=== PATIENT | male | born 1940 | race Caucasian/White ===

== ENCOUNTER 2017-07-28 11:38 | Inpatient (IN) | payer MEDICARE ==
[~2017-07-28] VITALS: Ht 175.3 cm; Wt 60.7 kg
--- NOTE | ~2017-07-28 | PN ---
PATIENT:MAYTE MORGAN MEDICAL RECORD: [id number] LOCATION:KENDRA Galeana ADMISSION DATE: 07/28/17 PROGRESS NOTE DATE OF SERVICE: 08/05/2017 SUBJECTIVE: The patient's case was discussed with staff. He has no new complaint. OBJECTIVE: The patient is in good behavioral control with limited insight about his condition. He tolerates his medicines well. ASSESSMENT: No change in diagnoses. PLAN: Current medicines and therapies have been reviewed, both will be maintained. Long-term prognosis is guarded. TRANSINT:[id number] Voice Confirmation ID: [id number] DOCUMENT ID: [id number] JUAN BEYER MD at 1331 CC: [id number] DICTATION DATE: 08/05/17 1349 LINING MACHINE TENDER: 08/05/17 1519 ADM IN [place] [address] [place] [address]
--- NOTE | ~2017-07-28 | DS ---
PATIENT:MAYTE MORGAN :44 MEDICAL RECORD: [id number] DISCHARGE SUMMARY ADMISSION DATE: 07/28/17 DISCHARGE DATE: 08/10/17 IDENTIFYING DATA: The patient is 77 years old and he was admitted to the hospital on a voluntary basis because of agitation. The patient lives in the [facility] and has not been taking his medicines. He has been yelling, delusional, and difficult to redirect. He has been making bizarre statements and threatening staff and other patients. PAST MEDICAL HISTORY: Significant for hearing loss, hypertension, stroke, carotid stenosis, COPD, and knee replacement. PAST PSYCHIATRIC HISTORY: Significant for an established diagnosis of dementia along with a previous history of depression. HOSPITAL COURSE: The patient was admitted to the hospital and fully evaluated from both a medical, psychological, and social standpoint. He was treated with both memory enhancing and mood stabilizing medications and showed improvement through the course of his hospitalization. He was subsequently transitioned out of the hospital and back to the snf, but when the snf transport people came to pick him up, he suddenly changed his mind and said he would not go with them. His family did take him home. DISCHARGE DIAGNOSES: AXIS I: Vascular dementia, major depression, moderate severity without psychotic features. AXIS II: None. AXIS III: Hearing loss, hyperlipidemia, glaucoma, carotid stenosis, and hypertension. AXIS IV: Moderate stressors. AXIS V: Global assessment of functioning is 35. PLAN: At the time of discharge, the patient was in good behavioral control and had no active thoughts of harming himself or others. He was tolerating his medications well. His long-term prognosis is guarded. TRANSINT:[id number] Voice Confirmation ID: [id number] DOCUMENT ID: [id number] JUAN BEYER MD at 1348 CC: [id number] DICTATION DATE: 08/12/17 1452 DOORPERSON OR LUGGAGE PORTER: 08/12/17 1512 DIS IN 08/10/17 [id number] [place] [address]
--- NOTE | ~2017-07-28 | PN ---
PATIENT:MAYTE MORGAN MEDICAL RECORD: [id number] LOCATION:KENDRA Galeana ADMISSION DATE: 07/28/17 PROGRESS NOTE DATE OF SERVICE: 07/30/2017 SUBJECTIVE: The patient states he will not take medication. OBJECTIVE: The patient is very difficult to communicate due to his hearing impairment. Staff report that he has been refusing personal hygiene care as well as medication. He does have an active urinary tract infection. On exam, mood is irritable. Affect is brittle. Speech is terse due to hearing impairment. Content of thought exhibits paranoid ideation. Sensorium shows no change. ASSESSMENT: No change in diagnoses. PLAN: 1. Maintain current treatment plan. 2. Continue supportive therapy. TRANSINT:[id number] Voice Confirmation ID: [id number] DOCUMENT ID: [id number] SAMARA MORAN III, MD at 1733 CC: [id number] DICTATION DATE: 07/30/17 1430 SPECIAL ASSEMBLIES SUPERVISOR: 07/30/17 1514 ADM IN [place] [address] [place] [address]
--- NOTE | ~2017-07-28 | PN ---
PATIENT:MAYTE MORGAN MEDICAL RECORD: [id number] LOCATION:KENDRA Galeana ADMISSION DATE: 07/28/17 PROGRESS NOTE DATE OF SERVICE: 08/03/2017 SUBJECTIVE: The patient's case was discussed with staff. He has no new complaint. OBJECTIVE: The patient is refusing medications. He is very hard of hearing, but I believe he understood the question. It is just that the answer made no sense. He is talking about some kind of a problem he had with medicines when he lived in [place], but I cannot get him to understand or cannot get him to express to me what that has to do with what we are doing now. He will only intermittently take medications, making it fairly difficult to treat him. ASSESSMENT: No change in diagnoses. PLAN: Current efforts will be maintained. His long-term prognosis is guarded. TRANSINT:[id number] Voice Confirmation ID: [id number] DOCUMENT ID: [id number] JUAN BEYER MD at 1426 CC: [id number] DICTATION DATE: 08/03/17 1430 SYSTEM ADMINISTRATION MANAGER: 08/03/17 1456 ADM IN [place] [address] [place] [address]
--- NOTE | ~2017-07-28 | PN ---
PATIENT:MAYTE MORGAN MEDICAL RECORD: [id number] LOCATION:KENDRA SaldañaBarbaraCarmen ADMISSION DATE: 07/28/17 PROGRESS NOTE DATE OF SERVICE: 08/07/2017 SUBJECTIVE: The patient's case was discussed with staff. He has no new complaint. OBJECTIVE: The patient is in good behavioral control with no aggressive behavior. ASSESSMENT: No change in diagnoses. PLAN: Supportive and educational interventions were made. Long-Term prognosis is guarded. TRANSINT:[id number] Voice Confirmation ID: [id number] DOCUMENT ID: [id number] JUAN BEYER MD at 1355 CC: [id number] DICTATION DATE: 08/07/17 0835 RECONCILEMENT CLERK: 08/07/17 1201 ADM IN [place] [address] [place] [address]
--- NOTE | ~2017-07-28 | PN ---
PATIENT:MAYTE MORGAN MEDICAL RECORD: [id number] LOCATION:KENDRA Galeana ADMISSION DATE: 07/28/17 PROGRESS NOTE DATE OF SERVICE: 08/09/2017 SUBJECTIVE: The patient's case was discussed with staff. He has no new complaint. OBJECTIVE: The patient is in good behavioral control with limited insight about his condition. He tolerates his medicines well. ASSESSMENT: No change in diagnoses. PLAN: Brief supportive and educational interventions were made. The patient is not acutely dangerous. I anticipate he could be transitioned out of the hospital soon. TRANSINT:[id number] Voice Confirmation ID: [id number] DOCUMENT ID: [id number] JUAN BEYER MD at 1446 CC: [id number] DICTATION DATE: 08/09/17 1410 AIR BRAKE WORKER: 08/09/17 1445 ADM IN [facility] [address] [place] [address]
--- NOTE | ~2017-07-28 | PN ---
PATIENT:MAYTE MORGAN MEDICAL RECORD: [id number] LOCATION:KENDRA Galeana ADMISSION DATE: 07/28/17 PROGRESS NOTE DATE OF SERVICE: 08/10/2017 SUBJECTIVE: The patient's case was discussed with staff. He has no new complaint. OBJECTIVE: The patient is in good behavioral control with limited insight about his condition. He generally tolerates his medicines well. ASSESSMENT: No change in diagnoses. PLAN: The patient will be transitioned out of the hospital today. His long-term prognosis is guarded. Followup will be with the alf physician. TRANSINT:[id number] Voice Confirmation ID: [id number] DOCUMENT ID: [id number] JUAN BEYER MD at 1731 CC: [id number] DICTATION DATE: 08/10/17 1504 CASING MATERIAL WEIGHER: 08/10/17 1524 DIS IN 08/10/17 [id number] [place] [address]
--- NOTE | ~2017-07-28 | PSY ---
PATIENT NAME:MAYTE MORGAN MEDICAL RECORD: [id number] : 44 LOCATION:KENDRA Wilson ADMISSION DATE: 07/28/17 ACCOUNT: [id number] PSYCHIATRIC EVALUATION DATE OF EVALUATION: 07/29/17 IDENTIFYING DATA: The patient is 77 years old. He was admitted to the hospital on a voluntary basis because of agitation. CHIEF COMPLAINT: None. HISTORY OF PRESENT ILLNESS: The patient lives in the [facility]. He has not been taking medicines there. He has been yelling, delusional, and difficult for them to redirect. He has been making delusional statements. He is extremely hard of hearing and even with his hearing aids and shouting into to ears, he is not following what is being said very well. He will answer. He has no questions and he is trying to understand what I am saying, but he has trouble. Even printing in large print, he still was having trouble. I think it is a cognitive processing issue as much as hearing loss. PAST MEDICAL HISTORY: Significant for stroke. He also has hypertension, carotid stenosis, COPD, and knee replacement. PAST PSYCHIATRIC HISTORY: None, but he clearly has a dementia. ALLERGIES: PNEUMOCOCCAL VACCINE. CURRENT MEDICATIONS: Include aspirin, Levaquin, Lipitor, lisinopril, Plavix, Protonix, and Zoloft. FAMILY HISTORY: Unknown. SOCIAL HISTORY: The patient lives in a correction. He has no current use of drugs or alcohol. His remote use is unknown. He apparently was living in [place] prior to going to the correction. He is and has 2 children. MENTAL STATUS EXAMINATION: The patient is awake, alert, and oriented to person only. His mood is flat. His affect is constricted. Thought processes are circumstantial. Memory, concentration, and abstraction abilities are severely impaired and he denies any active intent to harm himself or others as well as overt psychotic symptoms. ASSETS: Stable living environment. LIABILITIES: Limited insight. DIAGNOSTIC IMPRESSION: AXIS I: Vascular dementia and major depression. AXIS II: None. AXIS III: Hyperlipidemia, glaucoma, carotid stenosis, and hypertension. AXIS IV: Moderate stressors. AXIS V: Global assessment of functioning is 30. PLAN: At this time, the patient is admitted to the hospital for a comprehensive medical, psychological, and social evaluation. He will be treated with both mood stabilizing and memory enhancing medications. His long-term prognosis is guarded. TRANSINT:[id number] Voice Confirmation ID: [id number] DOCUMENT ID: [id number] JUAN BEYER MD at 1344 CC: [id number] DICTATION DATE: 07/29/17 1233 HEAD IRRIGATOR: 07/29/17 1244 ADM IN [place] [id number] [place] [address]
--- NOTE | ~2017-07-28 | PN ---
PATIENT:MAYTE MORGAN MEDICAL RECORD: [id number] LOCATION:KENDRA Galeana ADMISSION DATE: 07/28/17 PROGRESS NOTE DATE OF SERVICE: 08/02/2017 SUBJECTIVE: The patient's case was discussed with staff. He has no new complaint. OBJECTIVE: The patient is in good behavioral control with limited insight about his condition. He tolerates his medicines well. Eye contact is fair. ASSESSMENT: No change in diagnoses. PLAN: Brief supportive and educational interventions were made. The patient will be maintained on current medicines, which I have reviewed. I anticipate he can be transitioned out of the hospital if this level of improvement continues. TRANSINT:[id number] Voice Confirmation ID: [id number] DOCUMENT ID: [id number] JUAN BEYER MD at 1418 CC: [id number] DICTATION DATE: 08/02/171837 ASSISTANT CREDIT MANAGER: 08/03/17 0126 ADM IN [facility] [address] [place] [address]
--- NOTE | ~2017-07-28 | PN ---
PATIENT:MAYTE MORGAN MEDICAL RECORD: [id number] LOCATION:KENDRA Galeana ADMISSION DATE: 07/28/17 PROGRESS NOTE DATE OF SERVICE: 08/04/2017 SUBJECTIVE: The patient's case was discussed with staff. He has no new complaint. OBJECTIVE: The patient is in good behavioral control with limited insight about his condition. He tolerates his medicines well. ASSESSMENT: No change in diagnoses. PLAN: Brief supportive and educational interventions were made. Long-term prognosis is guarded. TRANSINT:[id number] Voice Confirmation ID: [id number] DOCUMENT ID: [id number] JUAN BEYER MD at 1337 CC: [id number] DICTATION DATE: 08/04/17 1458 HEALTHCARE FACILITY ADMINISTRATOR: 08/04/17 1607 ADM IN [place] [address] [place] [id number]
--- NOTE | ~2017-07-28 | PN ---
PATIENT:MAYTE MORGAN MEDICAL RECORD: [id number] LOCATION:KENDRA Galeana ADMISSION DATE: 07/28/17 PROGRESS NOTE DATE OF SERVICE: 08/06/2017 SUBJECTIVE: The patient's case was discussed with staff. He has no new complaint. OBJECTIVE: The patient is in good behavioral control with limited insight about his condition. He tolerates his medicines well. ASSESSMENT: No change in diagnoses. PLAN: Supportive and educational interventions were made. Long-term prognosis is guarded. I anticipate the patient can be transitioned out of the hospital soon if this level of improvement is maintained. TRANSINT:[id number] Voice Confirmation ID: [id number] DOCUMENT ID: [id number] JUAN BEYER MD at 1355 CC: [id number] DICTATION DATE: 08/06/17 1341 EDGE SAWYER: 08/06/17 2049 ADM IN [facility] [address] [place] [address]
--- NOTE | ~2017-07-28 | PN ---
PATIENT:MAYTE MORGAN MEDICAL RECORD: [id number] LOCATION:KENDRA Galeana ADMISSION DATE: 07/28/17 PROGRESS NOTE DATE OF SERVICE: 07/31/2017 SUBJECTIVE: No new complaint. OBJECTIVE: Again, communication is difficult because of the patient's hearing impairment. He has continued to be uncooperative in terms of personal hygiene and medication; however, his behavior has been reasonably well controlled. On exam, mood appears euthymic. Affect is very constricted. Speech terse. Content of thought appears to be focused primarily on somatic concerns. Sensorium shows no change. ASSESSMENT: No change in diagnosis. PLAN: 1. Continue current medications. 2. Continue supportive therapy. TRANSINT:[id number] Voice Confirmation ID: [id number] DOCUMENT ID: [id number] SAMARA MORAN III, MD at 1124 CC: [id number] DICTATION DATE: 07/31/17 1149 POCKET OPERATOR: 07/31/17 1202 ADM IN [place] [id number] [place] [id number]
[2017-07-28 12:34] LABS: APPEARANCE CLEAR (CLEAR); BILIRUBIN NEGATIVE (NEGATIVE); COLOR YELLOW (YELLOW); GLUCOSE NEGATIVE (NEGATIVE); KETONE NEGATIVE (NEGATIVE); NITRITE NEGATIVE (NEGATIVE); PROTEIN NEGATIVE (NEGATIVE); UROBILINOGEN NORMAL (NORMAL)
[2017-07-28] MEDS ORDERED: ACIDOPHILUS LAC1 CAP PO (12:36)
[2017-07-28] MEDS ORDERED: BAYER CHEWABLE81 MG PO (12:37)
[2017-07-28] MEDS ORDERED: COSOPT EYE DROPS5 ML EACH EYE (12:39)
[2017-07-28] MEDS ORDERED: LEVAQUIN500 MG PO (12:43)
[2017-07-28] MEDS ORDERED: VITAMIN D250000 UNIT PO (12:43)
[2017-07-28] MEDS ORDERED: LIPITOR40 MG PO (12:44)
[2017-07-28] MEDS ORDERED: PROTONIX20 MG PO (12:45)
[2017-07-28] MEDS ORDERED: LISINOPRIL10 MG PO (12:45)
[2017-07-28] MEDS ORDERED: PLAVIX75 MG PO (12:45)
[2017-07-28] MEDS ORDERED: ZOLOFT25 MG PO (12:46)
[2017-07-28 13:02] VITALS: BP 184/66
[2017-07-28 13:03] VITALS: BMI 23.0
[2017-07-28 13:19] LABS: BASOPHILS 0.2 % (0-2); EOSINOPHILS 0.9 % (0-7); HEMATOCRIT 41.8 % (42.0-54.0); HEMOGLOBIN 13.6 g/dL (13.5-17.5); IMMATURE GRANULOCYTES 0.3 % (0-5); LYMPHOCYTES 13.7 % (15-50); MCH 28.3 pg (26.0-34.0); MCHC 32.5 g/dL (31.0-37.0); MCV 86.9 fL (80.0-100.0); MEAN PLATELET VOLUME 11.4 fL (7.4-10.4); MONOCYTES 6.4 % (2-11); NEUTROPHILS 78.5 % (40-80); PLATELET COUNT 218 10x3/uL (130-400); RBC 4.81 10x6/uL (4.20-6.10); RDW 14.7 % (11.5-14.5); WBC 11.4 10x3/uL (4.8-10.8)
[2017-07-28 13:25] LABS: ALKALINE PHOSPHATASE 115 U/L (46-116); ALT (SGPT) 17 U/L (10-68); BILIRUBIN - TOTAL 0.29 mg/dL (0.2-1.3); CALC OSMOLALITY 286 mosm/kg (275-300); CALCIUM 9.3 mg/dL (8.5-10.1); CARBON DIOXIDE 28.4 mmol/L (21.0-32.0); CHLORIDE - SERUM 105 mmol/L (98-107); CHOL - HDL RATIO 3.5 ratio (2.3-4.9); CHOLESTEROL, TOTAL 131 mg/dL (0-200); GLUCOSE 134 mg/dL (74-106); HDL CHOLESTEROL 38 mg/dL (32-96); LDL CHOLESTEROL 54 mg/dL (0-100); LDL-HDL RATIO 1.4 ratio (1.5-3.5); PROTEIN - SERUM 7.6 g/dL (6.4-8.2); SODIUM 142 mmol/L (136-145); THYROID STIMULATING HORMONE 1.12 uIU/mL (0.36-3.74); TRIGLYCERIDE 196 mg/dL (30-200); UREA NITROGEN 17 mg/dL (7-18); eGFR NON AFRICAN AMERICAN 77 mL/min (90-120)
[2017-07-28 15:34] VITALS: BP 184/66; BMI 23.0
[2017-07-28 19:54] VITALS: BP 130/60
[2017-07-29 05:15] LABS: RAPID PLASMA REAGIN Non Reactive (Non Reactive)
[2017-07-29 07:27] LABS: VITAMIN D 25 HYDROXY 17.3 ng/mL (30.0-100.0)
[2017-07-29 14:26] VITALS: Ht 175.3 cm; Wt 60.7 kg
[2017-07-29 19:56] VITALS: BP 171/66
[2017-07-30 09:28] VITALS: BP 122/54
[2017-07-30 20:10] VITALS: BP 152/57
[2017-07-31 19:57] VITALS: BP 110/61
[2017-08-01 07:52] VITALS: BP 176/56
[2017-08-01 19:53] VITALS: BP 153/081
[2017-08-02 07:00] VITALS: BP 139/62
[2017-08-03 07:00] VITALS: BP 139/57
[2017-08-03 20:08] VITALS: BP 145/56
[2017-08-04 10:47] VITALS: BP 138/63
[2017-08-05 09:31] VITALS: BP 136/46
[2017-08-05 19:44] VITALS: BP 131/56
[2017-08-06 09:32] VITALS: BP 122/47
[2017-08-06 20:22] VITALS: BP 146/50
[2017-08-07 09:57] VITALS: BP 197/58
[2017-08-07 20:01] VITALS: BP 132/66
[2017-08-08 07:00] VITALS: BP 140/61
[2017-08-08 19:30] VITALS: BP 146/66
[2017-08-09 07:00] VITALS: BP 120/48
[2017-08-09] MEDS ORDERED: ZOLOFT50 MG PO (14:03)
[2017-08-09] MEDS ORDERED: NAMENDA5 MG PO (14:03)
[2017-08-09 19:49] VITALS: BP 141/51; BP 152/55
[2017-08-10 09:52] VITALS: BP 111/45
[2017-08-10 11:05] VITALS: BP 111/45
[2017-08-10 19:42] VITALS: BP 163/50
== END 2017-08-10 18:15 | disposition home or self-care (01) | DRG 57 ==
LOC: D.PSYCH 11:38
PROVIDERS: Psychiatry & Neurology Psychiatry
DX: I69.918 Other symptoms and signs involving cognitive functions following unspecified cerebrovascular disease (principal); F01.51 Vascular dementia, unspecified severity, with behavioral disturbance; E53.8 Deficiency of other specified B group vitamins; E55.9 Vitamin D deficiency, unspecified; F32.9 Major depressive disorder, single episode, unspecified; F41.9 Anxiety disorder, unspecified; K21.9 Gastro-esophageal reflux disease without esophagitis; H40.9 Unspecified glaucoma; E78.5 Hyperlipidemia, unspecified; I65.29 Occlusion and stenosis of unspecified carotid artery; I10 Essential (primary) hypertension; Z72.0 Tobacco use

== ENCOUNTER 2017-08-25 12:02 | Inpatient (IN) | payer MEDICARE ==
[~2017-08-25] VITALS: Ht 172.7 cm; Wt 87.2 kg
--- NOTE | ~2017-08-25 | PN ---
PATIENT:MAYTE MORGAN MEDICAL RECORD: [id number] LOCATION:KENDRA Galeana ADMISSION DATE: 08/25/17 PROGRESS NOTE DATE OF SERVICE: 09/10/2017 SUBJECTIVE: No new complaint. OBJECTIVE: The patient continues to be episodically uncooperative about medications and personal care. However, overall he is doing much better. He has not shown any evidence of aggressiveness. On exam, mood is for the most part euthymic. Affect is constricted. Speech is terse. Content of thought unchanged. Sensorium unchanged. ASSESSMENT: No change in diagnoses. PLAN: 1. Continue current medications. 2. Anticipate discharge early next week. TRANSINT:[id number] Voice Confirmation ID: [id number] DOCUMENT ID: [id number] SAMARA MORAN III, MD at 0703 CC: [id number] DICTATION DATE: 09/10/17 0959 FLAP CURER: 09/10/17 1107 ADM IN [place] [place] [address]
--- NOTE | ~2017-08-25 | DS ---
PATIENT:MAYTE MORGAN :44 MEDICAL RECORD: [id number] DISCHARGE SUMMARY ADMISSION DATE: 08/25/17 DISCHARGE DATE: 09/13/17 IDENTIFYING DATA: The patient is 77 years old and known to me from recent hospitalizations. He was admitted on this occasion because of aggression. He was hospitalized in July of this year for similar reasons. He was placed at the [facility] and on the occasion of this admission, he became acutely confused, agitated, and combative. He has a complicated history related to the relationship with his daughter in the assisted and he also tends to become angry and when he is not allowed to live with his daughter because she does not want him there he will not take his medicines. I know there has been a history of him not taking his medicines just prior to this admission, but it is difficult to know how many of them he flatly refused and how many he put in his mouth, but then later spit out, which he has been known to do. HOSPITAL COURSE: The patient was admitted to the hospital and fully evaluated from both the medical, psychological, and social standpoint. Extra care was taken by the nursing staff to ensure that if he does take the medicine that he actually swallowed it and interestingly, he rapidly improved. He was subsequently transitioned back to the assisted and was compliant with his medications at that time. DISCHARGE DIAGNOSES: AXIS I: Vascular dementia. AXIS II: None. AXIS III: Carotid stenosis, hypertension, hyperlipidemia, glaucoma. AXIS IV: Moderate stressors. AXIS V: Global Assessment Of Functioning is 35. PLAN: At the time of discharge, the patient was in good behavioral control and had no active thoughts of harming himself or others. He was tolerating his medications well. His long-term prognosis is guarded. TRANSINT:[id number] Voice Confirmation ID: [id number] DOCUMENT ID: [id number] JUAN BEYER MD at 1130 CC: [id number] DICTATION DATE: 09/17/171422 SUPERVISOR SEWING ROOM: 09/17/172211 DIS IN 09/13/17 [place] [address] [place] [address]
--- NOTE | ~2017-08-25 | PN ---
PATIENT:MAYTE MORGAN MEDICAL RECORD: [id number] LOCATION:KENDRA Galeana ADMISSION DATE: 08/25/17 PROGRESS NOTE DATE OF SERVICE: 08/31/2017 SUBJECTIVE: The patient's case was discussed with staff. He has no new complaint. OBJECTIVE: The patient is only partially oriented. He is not taking medications as prescribed. He became angry and raised his fist at one of the nurses today. ASSESSMENT: No change in diagnoses. PLAN: I have spoken with the patient about taking his medicines. He agrees to do so. I do not think he is lying to me, but I doubt that he will remember this or continue to take medicines. He was a little argumentative about needing them at all, but there is not very much I can do for him if he is not going to take medicines. He wants to live with his daughter Gilma, but Gilma does not want him to live with her. When he is told this, he gets angry and says it is not true even though she has told them this, he just cannot remember. TRANSINT:[id number] Voice Confirmation ID: [id number] DOCUMENT ID: [id number] JUAN BEYER MD at 1218 CC: [id number] DICTATION DATE: 08/31/17 1444 STRAW HAT WASHER OPERATOR: 08/31/17 1457 ADM IN [address] [address] [place] [address]
--- NOTE | ~2017-08-25 | PN ---
PATIENT:MAYTE MORGAN MEDICAL RECORD: [id number] LOCATION:KENDRA Cerda112 ADMISSION DATE: 08/25/17 PROGRESS NOTE DATE OF SERVICE: 09/03/2017 SUBJECTIVE: No new verbal complaint. OBJECTIVE: The patient is taking his medications as prescribed. Plans are eventual discharge to [facility] in [place]. On exam, mood is slightly irritable. Affect is reserved. Speech is terse. Content of thought is negative for overt psychosis. Sensorium is unchanged. ASSESSMENT: No change in diagnosis. PLAN: 1. Continue current medication. 2. Continue supportive therapy. TRANSINT:[id number] Voice Confirmation ID: [id number] DOCUMENT ID: [id number] SAMARA MORAN III, MD at 1037 CC: [id number] DICTATION DATE: 09/03/17 1107 COLD HEADER: 09/03/17 1253 ADM IN [place] [address] [place] [id number]
--- NOTE | ~2017-08-25 | PN ---
PATIENT:MAYTE MORGAN MEDICAL RECORD: [id number] LOCATION:KENDRA Galeana ADMISSION DATE: 08/25/17 PROGRESS NOTE DATE OF SERVICE: 09/08/2017 SUBJECTIVE: The patient's case was discussed with staff. He has no new complaint. OBJECTIVE: The patient is in good behavioral control with limited insight about his condition. He tolerates his medicines well. ASSESSMENT: No change in diagnoses. PLAN: Brief supportive and educational interventions were made. Long-term prognosis is guarded. TRANSINT:[id number] Voice Confirmation ID: [id number] DOCUMENT ID: [id number] JUAN BEYER MD at 1403 CC: [id number] DICTATION DATE: 09/08/17 1452 STORE MERCHANDISER: 09/08/17 1627 ADM IN [place] [place] [address]
--- NOTE | ~2017-08-25 | PN ---
PATIENT:MAYTE MORGAN MEDICAL RECORD: [id number] LOCATION:KENDRA Galeana ADMISSION DATE: 08/25/17 PROGRESS NOTE DATE OF SERVICE: 09/13/2017 SUBJECTIVE: The patient's case was discussed with staff. He has no new complaint. OBJECTIVE: The patient is in good behavioral control with limited insight about his condition. He generally tolerates his medicines well. ASSESSMENT: No change in diagnoses. PLAN: The patient will be transitioned to the [facility] in [place], [place]. Follow up will be with his primary care [facility] physician. He currently is tolerating his medicines well and does not represent an acute risk to himself or others. TRANSINT:[id number] Voice Confirmation ID: [id number] DOCUMENT ID: [id number] JUAN BEYER MD at 0826 CC: [id number] DICTATION DATE: 09/13/17 1410 CEMENT TESTER ASSISTANT: 09/13/17 1532 DIS IN 09/13/17 [place] [id number] [place] [address]
--- NOTE | ~2017-08-25 | PSY ---
PATIENT NAME:MAYTE MORGAN MEDICAL RECORD: [id number] : 44 LOCATION:KENDRA Gonzales ADMISSION DATE: 08/25/17 ACCOUNT: [id number] PSYCHIATRIC EVALUATION DATE OF EVALUATION: 08/26/17 IDENTIFYING DATA: The patient is 77 years old and he is very well known to me from recent hospitalization. CHIEF COMPLAINT: Aggression. HISTORY OF PRESENT ILLNESS: The patient was hospitalized here in July of this year. He has a history of dementia and was at the [facility] where he had been confused, agitated, and combative. He was treated with medications and on the day of discharge, the [facility] refused to take him back. He subsequently went home with his daughter. He says he is happy there and likes being there. He apparently has not been taking his medicines. The family has found medications that belonged to him hidden in various places around the house. It is unclear how much he is not taking them, but he has become increasingly agitated and confused and that precipitated this readmission. The patient is very hard of hearing, but if spoken to slowly and directly face on, I do not seem to have the trouble that others do and it may be related to the tone of voice. At any rate, he clearly is confused. He says he does not know why he is here and then when asked about the agitation, denies it. PAST PSYCHIATRIC HISTORY: Significant for hypertension, carotid stenosis, COPD, stroke, and knee replacement. CURRENT MEDICATIONS: Include Namenda, Zoloft, lisinopril, and aspirin. FAMILY HISTORY: Negative for psychiatric disease by his report. SOCIAL HISTORY: The patient is a cigarette smoker, but nondrinker. He has never been a user of drugs. He is and has 2 adult children. MENTAL STATUS EXAMINATION: The patient is awake, alert and oriented to person and place. His mood is euthymic. His affect is appropriate. Thought processes are disorganized and his memory, concentration, and abstraction abilities are at least moderately impaired. He denies any intent to harm himself or others as well as overt psychotic symptoms. ASSETS: Stable living environment. LIABILITIES: Limited insight. DIAGNOSTIC IMPRESSION: AXIS I: Vascular dementia. AXIS II: None. AXIS III: Carotid stenosis, hypertension, hyperlipidemia, and glaucoma. AXIS IV: Moderate stressors. AXIS V: Global assessment of functioning is 35. PLAN: At this time, the patient is admitted to the hospital for a comprehensive medical, psychological, and social evaluation. He will be treated with both mood stabilizing and memory enhancing medications. His long-term prognosis is guarded. TRANSINT:[id number] Voice Confirmation ID: [id number] DOCUMENT ID: [id number] JUAN BEYER MD at 1403 CC: [id number] DICTATION DATE: 08/26/17 1320 ORACLE SOA DEVELOPER: 08/26/17 1339 ADM IN [place] [id number] [place] [id number]
--- NOTE | ~2017-08-25 | PN ---
PATIENT:MAYTE MORGAN MEDICAL RECORD: [id number] LOCATION:KENDRA Galeana ADMISSION DATE: 08/25/17 PROGRESS NOTE DATE OF SERVICE: 08/27/2017 SUBJECTIVE: No new complaint. OBJECTIVE: The patient has been uncooperative. He has again been refusing medications similar to his behavior on previous visit. The patient had been aggressive and assaultive toward staff and other residents at his [facility]. On exam today, mood is somewhat irritable. Affect is shallow and brittle. Speech is very terse. Content of thought is negative for overt psychosis. Sensorium shows no change. ASSESSMENT: No change in diagnosis. PLAN: 1. Maintain current medications. 2. Continue supportive therapy. TRANSINT:[id number] Voice Confirmation ID: [id number] DOCUMENT ID: [id number] SAMARA MORAN III, MD at 1341 CC: [id number] DICTATION DATE: 08/27/17 1143 RAMP AGENT: 08/27/17 1148 ADM IN [place] [address] [place] [id number]
--- NOTE | ~2017-08-25 | PN ---
PATIENT:MAYTE MORGAN MEDICAL RECORD: [id number] LOCATION:[facility] ADMISSION DATE: 08/25/17 PROGRESS NOTE DATE OF SERVICE: 09/01/2017 SUBJECTIVE: The patient's case was discussed with staff. He has no new complaint. OBJECTIVE: The patient is refusing to take medications. He has not been aggressive. When asked about the medicines, he becomes argumentative and says he does not need them. He is very hard of hearing, but some people are understood better than others. 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 He continues to present a dilemma in that he will not take medicine consistently and he is insisting upon a placement that is not realistic. TRANSINT:[id number] Voice Confirmation ID: [id number] DOCUMENT ID: [id number] JUAN BEYER MD at 1341 CC: [id number] DICTATION DATE: 09/01/17 1230 FAMILY PSYCHOLOGIST: 09/01/17 1244 ADM IN [id number] [place] [address]
--- NOTE | ~2017-08-25 | PN ---
PATIENT:MAYTE MORGAN MEDICAL RECORD: [id number] LOCATION:[facility] ADMISSION DATE: 08/25/17 PROGRESS NOTE DATE OF SERVICE: 09/07/2017 SUBJECTIVE: The patient's case was discussed with staff. He has no new complaint. OBJECTIVE: The patient denies intent to harm himself or others. He generally tolerates his medicines well. ASSESSMENT: No change in diagnoses. PLAN: Current medicines and therapies have been reviewed and will be maintained. Long-term prognosis is guarded. TRANSINT:[id number] Voice Confirmation ID: [id number] DOCUMENT ID: [id number] JUAN BEYER MD at 1444 CC: [id number] DICTATION DATE: 09/07/17 1515 VAT CLEANER: 09/07/17 1527 ADM IN [facility] [address] [place] [address]
--- NOTE | ~2017-08-25 | PN ---
PATIENT:MAYTE MORGAN MEDICAL RECORD: [id number] LOCATION:[facility] ADMISSION DATE: 08/25/17 PROGRESS NOTE DATE OF SERVICE: 09/06/2017 SUBJECTIVE: The patient's case was discussed with staff. He has no new complaint. OBJECTIVE: The patient is in good behavioral control with limited insight about his condition. He does tolerate his medicines well. He will have his Namenda increased to 5 mg twice daily. Namenda is being used to treat his underlying cognitive impairment. He is scheduled to be admitted to the [facility]. He wants to live with his daughter, Gilma. Gilma does not want him to live there. TRANSINT:[id number] Voice Confirmation ID: [id number] DOCUMENT ID: [id number] JUAN BEYER MD at 1016 CC: [id number] DICTATION DATE: 09/06/17 190 AUTOMOBILE WASHER STEAM: 09/07/17 0321 ADM IN [place] [id number] [place] [address]
--- NOTE | ~2017-08-25 | PN ---
PATIENT:MAYTE MORGAN MEDICAL RECORD: [id number] LOCATION:[facility] ADMISSION DATE: 08/25/17 PROGRESS NOTE DATE OF SERVICE: 08/30/2017 SUBJECTIVE: The patient's case was discussed with staff. He has no new complaint. OBJECTIVE: The patient is in good behavioral control with limited insight about his condition. He tolerates his medicines well. He has not been entirely compliant with his medicines, but when asked about this, he insists he has. He wants to live with his daughter, Gilma. Gilma does not want him to live with her. When he is told this, he rejects that and says that is not true. TRANSINT:[id number] Voice Confirmation ID: [id number] DOCUMENT ID: [id number] JUAN BEYER MD at 1344 CC: [id number] DICTATION DATE: 08/30/17 1413 IRON PELLET TESTER: 08/30/17 1445 ADM IN [address] [id number] [place] [address]
--- NOTE | ~2017-08-25 | PN ---
PATIENT:MAYTE MORGAN MEDICAL RECORD: [id number] LOCATION:[facility] ADMISSION DATE: 08/25/17 PROGRESS NOTE DATE OF SERVICE: 09/09/2017 SUBJECTIVE: The patient's case was discussed with staff. He has no new complaint. OBJECTIVE: The patient is in good behavioral control with limited insight about his condition. He does tolerate his medicines well. He is accepting of going to the [facility] in [place]. He has very poor short-term memory and 2 days in a row he has asked questions about the same events when given news. I do anticipate he could be transitioned out of the hospital soon if this level of improvement is maintained. Current medicines will be maintained. TRANSINT:[id number] Voice Confirmation ID: [id number] DOCUMENT ID: [id number] JUAN BEYER MD at 0841 CC: [id number] DICTATION DATE: 09/09/17 1407 MEDICAL APPOINTMENT CLERK: 09/09/17 1417 ADM IN [place] [id number] [place] [address]
--- NOTE | ~2017-08-25 | PN ---
PATIENT:MAYTE MORGAN MEDICAL RECORD: [id number] LOCATION:[facility] ADMISSION DATE: 08/25/17 PROGRESS NOTE DATE OF SERVICE: 09/02/2017 SUBJECTIVE: The patient's case was discussed with staff. He has no new complaints. OBJECTIVE: The patient is in good behavioral control with limited insight about his condition. He generally tolerates his medicines well. He actually took his medicines this morning. Adult Protective Services is involved with the case and are going to assist us in placing him in a prison. TRANSINT:[id number] Voice Confirmation ID: [id number] DOCUMENT ID: [id number] JUAN BEYER MD at 0804 CC: [id number] DICTATION DATE: 09/02/17 1359 NEGOTIATIONS DIRECTOR: 09/02/17 1404 ADM IN [place] [id number] [place] [address]
--- NOTE | ~2017-08-25 | PN ---
PATIENT:MAYTE MORGAN MEDICAL RECORD: [id number] LOCATION:[facility] ADMISSION DATE: 08/25/17 PROGRESS NOTE DATE OF SERVICE: 09/04/2017 SUBJECTIVE: The patient's case was discussed with staff. He has no new complaint. OBJECTIVE: The patient denies intent to harm himself or others. He generally tolerates his medicines well. He is taking his medicines and has shown significant improvement. There does remain the road block that he insists that he wants to live with his daughter, Gilma and insists that we are mistaken when we tell her that she feels she cannot take care of him. Discussing that topic is a certain way of agitating him. ASSESSMENT: No change in diagnoses. PLAN: I am pleased the patient is taking his medicines, that is an improvement. The obstacle mentioned above is still something I am not sure about how to circumvent. TRANSINT:[id number] Voice Confirmation ID: [id number] DOCUMENT ID: [id number] JUAN BEYER MD at 1844 CC: [id number] DICTATION DATE: 09/04/17 1059 ASSISTANT OCEANOGRAPHER: 09/04/17 1615 ADM IN [facility] [address] [place] [address]
[~2017-08-25 12:02] MED LIST: ACIDOPHILUS LAC1 CAP PO; BAYER CHEWABLE81 MG PO; COSOPT EYE DROPS5 ML EACH EYE; LEVAQUIN500 MG PO; LIPITOR40 MG PO; LISINOPRIL10 MG PO; NAMENDA5 MG PO; PLAVIX75 MG PO; PROTONIX20 MG PO; VITAMIN D250000 UNIT PO; ZOLOFT25 MG PO; ZOLOFT50 MG PO
[2017-08-25 17:18] LABS: APPEARANCE CLEAR (CLEAR); BILIRUBIN NEGATIVE (NEGATIVE); COLOR YELLOW (YELLOW); GLUCOSE NEGATIVE (NEGATIVE); KETONE NEGATIVE (NEGATIVE); NITRITE NEGATIVE (NEGATIVE); PROTEIN NEGATIVE (NEGATIVE); SPECIFIC GRAVITY 1.015 (1.005-1.020); UROBILINOGEN NORMAL (NORMAL)
[2017-08-25 17:20] LABS: BASOPHILS 0.4 % (0-2); EOSINOPHILS 1.4 % (0-7); HEMATOCRIT 41.8 % (42.0-54.0); HEMOGLOBIN 13.9 g/dL (13.5-17.5); IMMATURE GRANULOCYTES 0.3 % (0-5); LYMPHOCYTES 24.3 % (15-50); MCH 28.7 pg (26.0-34.0); MCHC 33.3 g/dL (31.0-37.0); MCV 86.2 fL (80.0-100.0); MONOCYTES 5.3 % (2-11); NEUTROPHILS 68.3 % (40-80); PLATELET COUNT 243 10x3/uL (130-400); RBC 4.85 10x6/uL (4.20-6.10); RDW 14.8 % (11.5-14.5); WBC 12.5 10x3/uL (4.8-10.8)
[2017-08-25 17:31] LABS: ALBUMIN 3.7 g/dL (3.4-5.0); ALKALINE PHOSPHATASE 152 U/L (46-116); ALT (SGPT) 17 U/L (10-68); BILIRUBIN - TOTAL 0.38 mg/dL (0.2-1.3); CALC OSMOLALITY 280 mosm/kg (275-300); CALCIUM 9.3 mg/dL (8.5-10.1); CARBON DIOXIDE 25.6 mmol/L (21.0-32.0); CHLORIDE - SERUM 105 mmol/L (98-107); CREATININE - SERUM 0.9 mg/dL (0.6-1.3); GLUCOSE 106 mg/dL (74-106); PROTEIN - SERUM 7.7 g/dL (6.4-8.2); SODIUM 140 mmol/L (136-145); UREA NITROGEN 19 mg/dL (7-18); eGFR NON AFRICAN AMERICAN 87 mL/min (90-120)
[2017-08-25 23:32] LABS: CHOL - HDL RATIO 5.8 ratio (2.3-4.9); LDL-HDL RATIO 3.9 ratio (1.5-3.5)
[2017-08-26 04:21] VITALS: BP 199/61; BMI 28.4
[2017-08-26 08:11] VITALS: BP 145/70
[2017-08-26 13:49] VITALS: BMI 28.3
[2017-08-26 20:13] VITALS: BP 148/89
[2017-08-27 10:09] VITALS: BP 159/46
[2017-08-27 21:20] VITALS: BP 152/40
[2017-08-28 12:49] VITALS: BP 135/76
[2017-08-28 21:34] VITALS: BP 168/46
[2017-08-29 07:00] VITALS: BP 101/68
[2017-08-29 21:12] VITALS: BP 152/40
[2017-08-30 07:28] VITALS: BP 124/57
[2017-08-30 21:22] VITALS: BP 152/58
[2017-08-31 09:45] VITALS: BP 136/41
[2017-08-31 19:41] VITALS: BP 170/62
[2017-09-01 08:54] VITALS: BP 123/60
[2017-09-01 20:49] VITALS: BP 142/41
[2017-09-01 20:56] VITALS: BP 142/41
[2017-09-02 08:38] VITALS: BP 112/56
[2017-09-02 22:50] VITALS: BP 146/38
[2017-09-03 09:45] VITALS: BP 150/57
[2017-09-03 19:20] VITALS: BP 140/56
[2017-09-04 09:41] VITALS: BP 113/64
[2017-09-04 20:49] VITALS: BP 134/68
[2017-09-05 07:00] VITALS: BP 123/56
[2017-09-05 19:25] VITALS: BP 137/46
[2017-09-06 20:09] VITALS: BP 133/57
[2017-09-07 07:00] VITALS: BP 117/49
[2017-09-07 19:57] VITALS: BP 153/49
[2017-09-08 07:27] VITALS: BP 146/76
[2017-09-08 13:31] VITALS: Ht 172.7 cm; Wt 87.2 kg
[2017-09-08 21:29] VITALS: BP 147/46
[2017-09-09 10:04] VITALS: BP 146/76
[2017-09-09 20:51] VITALS: BP 140/68
[2017-09-09 20:52] VITALS: BP 140/68
[2017-09-10 20:32] VITALS: BP 183/57
[2017-09-11 07:44] VITALS: BP 126/74
[2017-09-11 19:19] VITALS: BP 177/54
[2017-09-12 07:00] VITALS: BP 140/44
[2017-09-12 19:04] VITALS: BP 142/52
[2017-09-13] MEDS ORDERED: NAMENDA5 MG PO (08:38)
[2017-09-13] MEDS ORDERED: PEPCID20 MG PO (08:39)
[2017-09-13] MEDS ORDERED: Vitamin D PO (08:39)
== END 2017-09-13 10:00 | DRG 57 ==
LOC: D.ER 12:02 → D.PSYCH 20:52
PROVIDERS: Physician Assistant Medical; Psychiatry & Neurology Psychiatry
DX: I69.318 Other symptoms and signs involving cognitive functions following cerebral infarction (principal); F01.51 Vascular dementia, unspecified severity, with behavioral disturbance; I65.29 Occlusion and stenosis of unspecified carotid artery; I10 Essential (primary) hypertension; E78.5 Hyperlipidemia, unspecified; H40.9 Unspecified glaucoma; K21.9 Gastro-esophageal reflux disease without esophagitis; F41.8 Other specified anxiety disorders; E53.8 Deficiency of other specified B group vitamins; E55.9 Vitamin D deficiency, unspecified; Z72.0 Tobacco use